=== PATIENT | female | born 1965 | race Caucasian/White ===

== ENCOUNTER → 2017-03-15 | Outpatient (CLI) | payer OTHER ==
[~2017-03-15] VITALS: Ht 154.9 cm; Wt 69.1 kg
[~2017-03-15] MED LIST: ASPI-664 PO; GABA100C14 PO; GLIP-95 PO; LOSA25TA2 PO; METF-480 PO; OMEP40CA6 PO; TEMA15CA PO
[2017-03-15 14:11] VITALS: BP 136/77; PULSE 73; RESP 18; Ht 154.9 cm; Wt 69.1 kg
--- NOTE | 2017-03-15 15:59 | PN ---
Date/Time of Note Date/Time of Note DATE: 03/15/17 TIME: 15:53 Outpatient Progress Note Chief Complaint Chest pain/diabetes/hypertension/PUD/neuropathy HPI Chest pain/patient was recently hospitalized with a chest pain, patient was seen by stator winder, at present no chest pain, no palpitation, no dizziness, Diabetes/no polydipsia polyuria hypoglycemia, no rash, no impaired vision, Hypertension/no headache or dizziness, no syncope, PUD/no heartburn, no nausea vomiting, Neuropathy/patient has tingling no numbness, aggravated by neuropathy, on Neurontin, slowly improving, Review of Systems Const: No Fever, no chills, no Wt. loss, no Fatigue, normal appetite, no diaphoresis. Eyes: No pain, no discharge, no redness, no visual change, no foreign body. ENT: No pain, no bleeding, no congestion, no sore throat, no dysphagia, no discharge or rhinitis. Lymph: No adenopathy, no tender nodes, no lymphedema. Resp: No SOB, no cough, no sputum, no wheezing, no chest pain. CV: No chest pain, no palpitaions, no CRAIG, no PND, no edema. GI: Normal appetite, no pain, no nausea, no vomiting, no diarrhea, no blood, no constipation. : No frequency, no urgency, no dysuria, no hematuria, no flank pain, no discharge, no bleeding. Musc: No back pain, no neck pain, no knee pain, no restricted ROM. Skin: No rash, no skin lesions, no erythema, no laceration, no bruising, no pruritus. Neuro: No CALLAHAN, no dizziness, no syncope, no seizure, no focal-weakness. She has neuropathy pain, and about the feet, Endo: No polyuria, no polydypsia, no dry-skin, no temp-intolerance. Psych: No hallucinations, no depression, no anxiety, no suicidal ideation. Ext: No edema, neuropathy pain both feet, no ulcer, no weakness. Physical Exam Vital Signs Date Time Temp Pulse Resp B/P Pulse Ox O2 Delivery O2 Flow Rate FiO2 03/15/17 14:11 98.3 73 18 136/77 97 Room Air General Appearance: A 51 year-old female who appears well-developed, well- nourished, in no acute distress. Slightly obese, HEENT: Head normocephalic, atraumatic. Pupils equal, round, reactive to light and accommodate. Sclerae are no jaundice. Nasal turbinates pink without erythema or nasal discharge. Mucous membranes pink and moist without lesions. Oropharynx clear without any exudate or discharge. NECK: Supple. Trachea midline, No thyromegaly, No cervical lymphadenopathy, No mass, No carotid bruits, No JVD, Carotid pulses 2+ bilaterally. PULMONARY: Clear to auscultaion bilaterally, No retractions, Chest expansion symmetric bilaterally, no rales, no ronchi, no dulness on percussion. CARDIAC: Normal SI and S2, Regular rate and rythm, no murmur, gallop, or rub. GASTROINTESTINAL: Abdomen is soft, non-tender, Non Rigid, No distention, Positive bowel sounds x4 quadrants, Liver normal. SKIN: Warm, dry, no rash, no bruise, no echmosis. EXTREMITIES: Bilateral lower extremities normal, no edema, no phlabitus, pulse palpable, no contracture. MUSCULOSKELETAL: Spine Normal, Non-tender, Normal range of motion, No swelling, no deformity, no clubbing, or cyanosis, the patient has no edema to bilateral lower extremities, dorsalis pedis pulses palpable bilaterally. NEUROLOGIC: The patient is awake, alert, oriented, responding to yes/no questions appropriately, moving all extremities, cranial nerve intact, normal strenght, normal power, normal coordination, normal gait. Allergies Coded Allergies: No Known Drug Allergies (Verified Allergy, Unknown, 03/15/17) PMH Diabetes/hypertension/PUD/neuropathy/chest pain/bradycardia Social Hx No smoking or drinking, Family Hx Noncontributory Assessment/Plan Impression Chest pain/diabetes/hypertension/PUD/neuropathy Plan Patient education done about diabetes hypertension, and possible complication, including RI CVA, renal failure, gangrene, vascular disease, blindness, and sudden , and hypoglycemia, Patient understands it patient educated about diet and exercise, Patient to follow strictly with a diet exercise, control of blood sugar control of blood pressure control the weight, patient has all the medication at present, Patient encouraged to follow with the primary care physician, Patient to follow with the cardiology for outpatient treadmill, and workup, patient had seen Dr. Cifuentes in the hospital, Medications Home Meds Reported Medications Omeprazole* (Omeprazole*) 40 Mg Capsule., 40 MG PO DAILY, #30 CAP 03/15/17 Metformin* (Glucophage*) 850 Mg Tablet, 850 MG PO WITH MEALS, #90 TAB 03/15/17 Glipizide* (Glipizide*) 10 Mg Tablet, 10 MG PO BID, TAB 03/15/17 Gabapentin* (Gabapentin*) 100 Mg Capsule, 200 MG PO BID, #180 CAP 03/15/17 Temazepam* (Temazepam*) 15 Mg Capsule, 15 MG PO HS Y for INSOMNIA, CAP 03/15/17 Losartan Potassium* (Cozaar*) 25 Mg Tablet, 25 MG PO DAILY, #30 TAB 03/15/17 Aspirin (Low Dose Aspirin) 81 Mg Tablet.dr, 81 MG PO DAILY, #30 TAB 03/15/17 GLADYS HUDSON MD Mar 15, 2017 15:59
== END | disposition home or self-care (01) ==
LOC: DCC 14:06
PROVIDERS: ATTEND Internal Medicine
DX: R07.9 Chest pain, unspecified (principal); E11.9 Type 2 diabetes mellitus without complications; I10 Essential (primary) hypertension; K27.9 Peptic ulcer, site unspecified, unspecified as acute or chronic, without hemorrhage or perforation; G62.9 Polyneuropathy, unspecified; Z79.84 Long term (current) use of oral hypoglycemic drugs; Z79.82 Long term (current) use of aspirin

== ENCOUNTER 2017-03-30 14:16 | Outpatient (CLI) | payer OTHER ==
[~2017-03-30] VITALS: Ht 154.9 cm; Wt 69.0 kg
[2017-03-30 14:28] VITALS: BP 119/75; PULSE 74; RESP 18
[2017-03-30 14:31] VITALS: Ht 154.9 cm; Wt 69.0 kg
--- NOTE | 2017-03-30 14:43 | PN ---
Date/Time of Note Date/Time of Note DATE: 03/30/17 TIME: 14:38 Outpatient Progress Note Chief Complaint Chest pain/hypertension/diabetes/neuropathy HPI Chest pain/at present patient has no chest pain, patient was recently hospitalized, no tingling no numbness, no pain in between the shoulder blade, no palpitation, no dizziness, no lightheadedness, no chest pressure, no left arm pain no numbness, Hypertension/no headache or dizziness, blood pressure under control, Diabetes/no polyps or bleeding hypoglycemia, blood sugar fairly controlled, Neuropathy/patient has neuropathy pain on both feet, slightly improved with the gabapentin, still has some numbness, Review of Systems Const: No Fever, no chills, no Wt. loss, no Fatigue, normal appetite, no diaphoresis. Eyes: No pain, no discharge, no redness, no visual change, no foreign body. ENT: No pain, no bleeding, no congestion, no sore throat, no dysphagia, no discharge or rhinitis. Lymph: No adenopathy, no tender nodes, no lymphedema. Resp: No SOB, no cough, no sputum, no wheezing, no chest pain. CV: No chest pain, no palpitaions, no CRAIG, no PND, no edema. GI: Normal appetite, no pain, no nausea, no vomiting, no diarrhea, no blood, no constipation. : No frequency, no urgency, no dysuria, no hematuria, no flank pain, no discharge, no bleeding. Musc: No back pain, no neck pain, no knee pain, no restricted ROM. Skin: No rash, no skin lesions, no erythema, no laceration, no bruising, no pruritus. Neuro: No CALLAHAN, no dizziness, no syncope, no seizure, no focal-weakness. Patient has slight tingling and numbness in both feet, Endo: No polyuria, no polydypsia, no dry-skin, no temp-intolerance. Psych: No hallucinations, no depression, no anxiety, no suicidal ideation. Ext: No edema, patient has neuropathy pain, no ulcer, no weakness. Physical Exam Vital Signs Date Time Temp Pulse Resp B/P Pulse Ox O2 Delivery O2 Flow Rate FiO2 03/30/17 14:28 98.2 74 18 119/75 98 Room Air General Appearance: A 51 year-old female who appears well-developed, well- nourished, in no acute distress. HEENT: Head normocephalic, atraumatic. Pupils equal, round, reactive to light and accommodate. Sclerae are no jaundice. Nasal turbinates pink without erythema or nasal discharge. Mucous membranes pink and moist without lesions. Oropharynx clear without any exudate or discharge. NECK: Supple. Trachea midline, No thyromegaly, No cervical lymphadenopathy, No mass, No carotid bruits, No JVD, Carotid pulses 2+ bilaterally. PULMONARY: Clear to auscultaion bilaterally, No retractions, Chest expansion symmetric bilaterally, no rales, no ronchi, no dulness on percussion. CARDIAC: Normal SI and S2, Regular rate and rythm, no murmur, gallop, or rub. GASTROINTESTINAL: Abdomen is soft, non-tender, Non Rigid, No distention, Positive bowel sounds x4 quadrants, Liver normal. SKIN: Warm, dry, no rash, no bruise, no echmosis. EXTREMITIES: Bilateral lower extremities normal, no edema, no phlabitus, pulse palpable, no contracture. Patient has neuropathy pain, in the both the feet MUSCULOSKELETAL: Spine Normal, Non-tender, Normal range of motion, No swelling, no deformity, no clubbing, or cyanosis, the patient has no edema to bilateral lower extremities, dorsalis pedis pulses palpable bilaterally. NEUROLOGIC: The patient is awake, alert, oriented, responding to yes/no questions appropriately, moving all extremities, cranial nerve intact, normal strenght, normal power, normal coordination, normal gait. Allergies Coded Allergies: No Known Drug Allergies (Verified Allergy, Unknown, 03/15/17) PMH Chest pain resolved/hypertension/diabetes/neuropathy/PUD Social Hx No change Family Hx No change Assessment/Plan Impression Chest pain resolved Hypertension under control Diabetes fairly controlled Neuropathy of the feet PUD Plan Patient education done about her condition and multiple disease, patient high risk for repeated admission, patient high risk for complication, explained to the patient, Patient has bilateral feet neuropathy pain, patient shows not appropriate for long walking, patient advised to increase activity, reduced calorie, Patient will refer to podiatry for neuropathy and patient will get an appropriate shoes so patient may not end up with a ulcer, Patient has all the medication, no need for refill, Patient to follow with the primary care physician, Medications Home Meds Reported Medications Omeprazole* (Omeprazole*) 40 Mg Capsule., 40 MG PO DAILY, #30 CAP 03/15/17 Metformin* (Glucophage*) 850 Mg Tablet, 850 MG PO WITH MEALS, #90 TAB 03/15/17 Gabapentin* (Gabapentin*) 100 Mg Capsule, 200 MG PO BID, #180 CAP 03/15/17 Temazepam* (Temazepam*) 15 Mg Capsule, 15 MG PO HS Y for INSOMNIA, CAP 03/15/17 Losartan Potassium* (Cozaar*) 25 Mg Tablet, 25 MG PO DAILY, #30 TAB 03/15/17 Aspirin (Low Dose Aspirin) 81 Mg Tablet., 81 MG PO DAILY, #30 TAB 03/15/17 GLADYS HUDSON MD Mar 30, 2017 14:43
== END 2017-03-30 17:00 | disposition home or self-care (01) ==
LOC: DCC 14:16
PROVIDERS: ATTEND Internal Medicine
DX: R07.9 Chest pain, unspecified (principal); I10 Essential (primary) hypertension; E11.42 Type 2 diabetes mellitus with diabetic polyneuropathy; Z79.84 Long term (current) use of oral hypoglycemic drugs
CPT/HCPCS: G0463